=== PATIENT | male | born 1980 | race Caucasian/White ===

== ENCOUNTER 2018-08-29 07:07 | Day surgery (SDC) | payer OTHER ==
[2018-08-29] VITALS (17 sets, daily range): BP systolic 90–113; BP diastolic 56–84; PULSE 78–96; RESP 13–18; Ht 170.2 cm; Wt 69.2 kg
[~2018-08-29] VITALS: Ht 170.2 cm; Wt 69.2 kg
[~2018-08-29 07:07] MED LIST: SUCCINYLCHOLINE CHLORIDE 100 MG/5 ML SYG IV ONE
[2018-08-29] MEDS ORDERED: SOD CHLORIDE 0.9% 1,000 ML IV SCH (08:00)
[2018-08-29] MEDS ORDERED: CEFAZOLIN 2 GM/50 ML (PMX) 50 ML IVPB SCH (08:00)
--- NOTE | 2018-08-29 10:20 | PREAC ---
Date/Time of Note Date/Time of Note DATE: 08/29/18 TIME: 10: Anesthesia Eval and Record Evaluation Time Pre-Procedure Interview DATE: 08/29/18 TIME: 10:19 Age 37 Sex male NPO: 8 hrs Preoperative diagnosis foreign body left shoulder and left flank Planned procedure removal of foreign body left shoulder and left flank Past Medical History Past Medical History: None Surgery & Anesthesia Issues No known issue Meds Anticoagulation: No Beta Bette within 24 hr: No Reason Beta Bette not given: Pt. not on B-Bette No Active Prescriptions or Reported Meds Current Medications Cefazolin Sodium/ Dextrose 50 ml @ 100 mls/hr PRE-OP IVPB ; Start 08/29/18 at 08:00 Sodium Chloride 1,000 ml @ 75 mls/hr [id number] IV ; Start 08/29/18 at 08:00; Stop 08/29/18 at 20:00 Meds reviewed: Yes Allergies Coded Allergies: No Known Drug Allergy (Verified Allergy, Unknown, 08/29/18) Allergies Reviewed: Yes Labs/Studies Labs Reviewed: Reviewed by anesthesiologist test: N/A Pre-procedure Exam Last vitals Vital Signs Date Temp Pulse Resp B/P (MAP) Pulse Ox O2 O2 Flow FiO2 Time Delivery Rate 08/29/18 97.8 96 16 113/74 100 Room Air 08:58 (87) Airway: Adequate mouth opening, Adequate thyromental dist Mallampati: Mallampati II Teeth: Normal Lung: Normal Heart: Normal ASA Physical Status ASA physical status: 1 Emergency: None Planned Anesthetic General/MAC: LMA Planned Pain Management Parenteral pain med Pre-operative Attestations Prior to commencing anesthesia and surgery, the patient was re-evaluated, there was verification of: *The patient's identity *The results of appropriate recent lab work and preoperative vital signs *The above evaluation not changing prior to induction *Anesthetic plan, risk benefits, alternative and complications discussed with patient/family; questions answered; patient/family understands, accepts and wishes to proceed. DELL VARGAS MD Aug 29, 2018 10:20
[2018-08-29] MEDS ORDERED: OXYCODONE/ACETAMINOPHEN (5/325) TAB PO PRN (10:30)
[2018-08-29] MEDS ORDERED: DIPHENHYDRAMINE 50 MG INJ IV PRN (10:30)
[2018-08-29] MEDS ORDERED: ONDANSETRON 4 MG INJ IV PRN (10:30)
[2018-08-29] MEDS ORDERED: PROCHLORPERAZINE 10 MG INJ IV PRN (10:30)
[2018-08-29] MEDS ORDERED: MEPERIDINE 25 MG INJ IV PRN (10:30)
[2018-08-29] MEDS ORDERED: FENTAnyl 50 MCG/ML VIAL IV PRN (10:30)
[2018-08-29] MEDS ORDERED: HYDROmorphONE 1 MG/5 ML IV SYRINGE IV PRN ×3 (10:30)
[2018-08-29] MEDS ORDERED: MIDAZOLAM 1 MG/ML 2 ML INJ ONE (10:36)
[2018-08-29] MEDS ORDERED: PROPOFOL 20 ML ONE (10:36)
[2018-08-29] MEDS ORDERED: FENTAnyl 50 MCG/ML VIAL ONE (10:36)
[2018-08-29] MEDS ORDERED: LIDOCAINE 2% (SDV) 5 ML INJ ONE (10:36)
[2018-08-29] MEDS ORDERED: ETOMIDATE 20 MG INJ ONE (10:56)
[2018-08-29] MEDS ORDERED: PHENYLephrine (100 MCG/ML) 5ML SYG ONE (10:56)
[2018-08-29] MEDS ORDERED: BUPIVACAINE 0.5%/EPI (SDV) 30 ML INJ ONE (11:05)
[2018-08-29] MEDS ORDERED: CEFAZOLIN 1 GM INJ ONE (11:18)
[2018-08-29] MEDS ORDERED: ONDANSETRON 4 MG INJ ONE (11:25)
[2018-08-29] MEDS ORDERED: DEXAMETHASONE 4 MG/ML 5 ML INJ ONE (11:25)
--- NOTE | 2018-08-29 11:45 | SIPON ---
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
--- NOTE | 2018-08-29 12:06 | PAC ---
Date/Time of Note Date/Time of Note DATE: 08/29/18 TIME: 12:06 Post-Anesthesia Notes Post-Anesthesia Note Last documented vital signs Vital Signs Date Temp Pulse Resp B/P (MAP) Pulse Ox O2 O2 Flow FiO2 Time Delivery Rate 08/29/18 97.8 96 16 113/74 100 Room Air 08:58 (87) Activity: WNL Respiratory function: WNL Cardiovascular function: WNL Mental status: Baseline Pain reasonably controlled: Yes Hydration appropriate: Yes Nausea/Vomiting absent: Yes Comments BP: 118/68 HR: 83 RR: 15 T: 97.9 SaO2: 99% DELL VARGAS MD Aug 29, 2018 12:06
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
== END 2018-08-29 14:10 | disposition home or self-care (01) ==
LOC: SDS 07:07
PROVIDERS: ATTEND Surgery Surgical Oncology
DX: M79.5 Residual foreign body in soft tissue (principal)
CPT/HCPCS: 23333; 88300; 88304; J0690; J1100; J2250; J2370; J2405; J3010; Z7512; Z7610